=== PATIENT | female | born 1985 | race Caucasian/White ===

== ENCOUNTER 2017-02-06 20:17 | Emergency (ER) | payer OTHER ==
--- NOTE | 2017-02-06 21:44 | DIAGNOSTIC IMAGING REPORT ---
PROCEDURE: XR RIBS UNILAT W/PA CHEST-RT INDICATION: TRAUMA/INJURY TECHNIQUE: Two views of the right ribs with single PA view chest. COMPARISON: Compared to chest x-ray and 06/06/2014. FINDINGS: RIGHT RIBS: There is an acute minimally displaced fracture of the anterior lateral right ninth rib. The rest of the ribs are normal. CHEST: Lungs are clear. Heart and mediastinum are normal. Thorax is normal. IMPRESSION: 1. Acute fracture of the right ninth rib. 2. Negative chest. 3. Fine discussed with BHUPENDRA Gil.
--- NOTE | 2017-02-06 21:47 | ED ORDER SUMMARY ---
..... Patient: REECE BUCKNER OrderSheet [facility] VisitID: [id number] [place] [address] 31y, F Registration Date/Time: 02/06/2017 ORDER SHEET Weight: 56.7 kg (measured) Allergies: morphine, Ultram GENERAL ORDERS: Ribs Unilat w PA Chest Right Urgent (20:35 02/06/2017 HBivens A.R.N.P.) (Ack 20:38 SRedmond) (21:09 MCampbell) Urine Urgent (20:45 02/06/2017 DDavis R.N. verbal order read back to HBivens A.R.N.P.) (Ack 20:47 SRedmond) (20:54 DDavis R.N.) MEDICATION ORDERS: Toradol IM 60 mg (NOW) (20:34 02/06/2017 HBivens A.R.N.P.) (Ack 20:41 DDavis R.N.) (20:54 DDavis R.N.) IV FLUIDS: ORDER SHEET NOTES: [Electronically signed by Jaquan Conteh R.N. (21:55 02/06/2017)] [Electronically signed by Karlene GuzmánR.N.PRicki (22:22 02/06/2017)] [Electronically locked/signed by Jaquan Conteh R.N. (21:55 02/06/2017)]
--- NOTE | 2017-02-06 21:47 | ED ORDER SUMMARY ---
..... Patient: REECE BUCKNER OrderSheet [facility] VisitID: [id number] [place] [address] 31y, F Registration Date/Time: 02/06/2017 ORDER SHEET Weight: 56.7 kg (measured) Allergies: morphine, Ultram GENERAL ORDERS: Ribs Unilat w PA Chest Right Urgent (20:35 02/06/2017 HBivens A.R.N.P.) (Ack 20:38 SRedmond) (21:09 MCampbell) Urine Urgent (20:45 02/06/2017 DDavis R.N. verbal order read back to HBivens A.R.N.P.) (Ack 20:47 SRedmond) (20:54 DDavis R.N.) MEDICATION ORDERS: Toradol IM 60 mg (NOW) (20:34 02/06/2017 HBivens A.R.N.P.) (Ack 20:41 DDavis R.N.) (20:54 DDavis R.N.) IV FLUIDS: ORDER SHEET NOTES: [Electronically signed by Jaquan Conteh R.N. (21:55 02/06/2017)] [Electronically signed by Karlene GuzmánR.N.PRicki (22:22 02/06/2017)] [Electronically locked/signed by Jaquan Conteh R.N. (21:55 02/06/2017)]
--- NOTE | 2017-02-06 21:47 | ED NURSING NOTES ---
Clinical Report - Nurses [facility] [place] [address] 02/06/2017 20:19 [id number] TRI[facility] Triage time 20:23. Acuity: LEVEL 4. Chief Complaint: FALL and (right side/rib pain, increases with palpation and movement). Alert. VIDAL COMA SCORE: Vidal Coma Scale: 15- eyes open spontaneously (4); best verbal response- oriented x 4 (5); best motor response- obeys commands (6). --20:30 Jaquan Conteh R.N. 20:23 02/06/17. BP: 135/88. HR: 103 (regular). RR: 20 (regular and unlabored). O2 saturation: 99% on room air. Temp: 98.1 F (oral). Pain level now: 06/12. --20:30 Jaquan Conteh R.N. Weight: 56.7 kg measured. Height/Length: 65 inches Per Patient. BMI: 20.8. --20:23 Jaquan Conteh R.N. Medications None. --20:29 Jaquan Conteh R.N. Allergies morphine. Ultram. --20:29 Jaquan Conteh R.N. History Arrived by private vehicle. Historian: patient. Unaccompanied. This occurred (2 days ago). ( pt states that she was running running "the day before yesterday" and states that she "tripped" and fell, and landed on her right side. States having right leg pain, and denies having other injuries, denies hitting her head.). No loss of consciousness. No headache, neck pain, back pain, numbness or weakness. SOCIAL HX: Heavy tobacco smoker (cigarette)- 1 pack per day. History of drug use: marijuana. Is a recovering addict. No alcohol use. SELF HARM ASSESSMENT: A self harm assessment was performed. The patient answered "no" to the question "Do you have thoughts of harming or killing yourself?" and "Are you here because you tried to hurt yourself?". FALL RISK ASSESSMENT: Fall risk assessment completed. No fall risk identified. NUTRITIONAL RISK ASSESSMENT: The nutritional risk assessment revealed no deficiencies. FUNCTIONAL ASSESSMENT: Functional assessment: no impairments noted. LEARNING NEEDS ASSESSMENT: The learning needs assessment revealed no barriers. SKIN INTEGRITY ASSESSMENT: Skin integrity risk assessment completed. No skin integrity risk identified. --20:30 Jaquan Conteh R.N. PROBLEMS: Dental Caries. Nausea. Congestive pelvic disorder. Brain cyst. Contusion. ADD - Attention Deficit Disorder. Depression. Anxiety Reaction. ADHD - Attention Deficit Hyperactivity Disorder. Migraine Headache. Asthma. --20:29 Jaquan Conteh R.N. ADDITIONAL SURGERIES: Dilatation & Curettage. Laparoscopy. Oophorectomy [2011]. --20:29 Jaquan Conteh R.N. Interventions ID and allergy band on patient. To treatment room. --20:30 Jaquan Conteh R.N. PHYSICAL ASSESSMENT GENERAL / NEURO / PSYCH: Alert. Oriented X 4. HEENT: Head non-tender. RESPIRATORY: Respirations not labored. CVS: Capillary refill less than 2 seconds. GI / : Abdomen nontender. EXTREMITIES: Extremities exhibit normal ROM. Neuro-vascular status intact to the extremity. SKIN: Skin intact. Skin is warm and dry. ( no bruising or external deformity observed on examination of right side/area on chief complaint. No bleeding or signs of broken skin observed.). --20:31 Jaquan Conteh R.N. NURSING PROGRESS NOTES Patient gowned. Reassurance given. Two patient identifiers checked. Call light placed in reach. Side rails up x 2. Bed placed in lowest position. Brakes of bed on. Patient ready for evaluation- chart flagged. Patient waiting for evaluation. --20:31 Jaquan Conteh R.N. 20:53 02/06/2017 Toradol (Ketorolac Tromethamine) IM 60 mg given. Given in the right gluteus jeana. --20:54 Jaquan Conteh R.N. Urine test negative; lot #: [id number]. corrosion control specialist check passed. --20:56 Jaquan Conteh R.N. ( Xray notified that patient is ready). --20:56 Jaquan Conteh R.N. ( HCG urine test was performed at 2049.). --20:57 Jaquan Conteh R.N. DISPOSITION / DISCHARGE Departure time: 21:55. Condition at departure: stable. No learning barriers present. Discharge instructions provided and reviewed with the patient. Reviewed warnings. Reviewed medication(s) side effects, precautions, dosing and course information. Prescription(s) given to the patient. Treatments reviewed. Reviewed referrals for followup. Patient verbalized understanding. Written instructions provided in Occitan. ( pt verbally acknowledged that she is not allowed to drive or operate heavy machinery after taking the [place]'s that she was prescribed today.). The patient was discharged home and unaccompanied at time of discharge. She left the Emergency Department ambulatory and via private vehicle. Patient driving. --21:55 Jaquan Conteh R.N. 21:53 02/06/17. BP: 123/84. HR: 105. RR: 20 (regular and unlabored). O2 saturation: 100% on room air. Pain level now: 8/10. Additional comments: pt crying. --21:55 Jaquan Conteh R.N. Locked/Released at 02/06/2017 21:55 by Jaquan Conteh R.N.
--- NOTE | 2017-02-06 21:47 | ED NURSING NOTES ---
Clinical Report - Nurses [facility] [place] [address] 02/06/2017 20:19 [id number] Triage time 20:23. Acuity: LEVEL 4. Chief Complaint: FALL and (right side/rib pain, increases with palpation and movement). Alert. VIDAL COMA SCORE: Vidal Coma Scale: 15- eyes open spontaneously (4); best verbal response- oriented x 4 (5); best motor response- obeys commands (6). --20:30 Jaquan Conteh R.N. 20:23 02/06/17. BP: 135/88. HR: 103 (regular). RR: 20 (regular and unlabored). O2 saturation: 99% on room air. Temp: 98.1 F (oral). Pain level now: 06/12. --20:30 Jaquan Conteh R.N. Weight: 56.7 kg measured. Height/Length: 65 inches Per Patient. BMI: 20.8. --20:23 Jaquan Conteh R.N. Medications None. --20:29 Jaquan Conteh R.N. Allergies morphine. Ultram. --20:29 Jaquan Conteh R.N. History Arrived by private vehicle. Historian: patient. Unaccompanied. This occurred (2 days ago). ( pt states that she was running running "the day before yesterday" and states that she "tripped" and fell, and landed on her right side. States having right leg pain, and denies having other injuries, denies hitting her head.). No loss of consciousness. No headache, neck pain, back pain, numbness or weakness. SOCIAL HX: Heavy tobacco smoker (cigarette)- 1 pack per day. History of drug use: marijuana. Is a recovering addict. No alcohol use. SELF HARM ASSESSMENT: A self harm assessment was performed. The patient answered "no" to the question "Do you have thoughts of harming or killing yourself?" and "Are you here because you tried to hurt yourself?". FALL RISK ASSESSMENT: Fall risk assessment completed. No fall risk identified. NUTRITIONAL RISK ASSESSMENT: The nutritional risk assessment revealed no deficiencies. FUNCTIONAL ASSESSMENT: Functional assessment: no impairments noted. LEARNING NEEDS ASSESSMENT: The learning needs assessment revealed no barriers. SKIN INTEGRITY ASSESSMENT: Skin integrity risk assessment completed. No skin integrity risk identified. --20:30 Jaquan Conteh R.N. PROBLEMS: Dental Caries. Nausea. Congestive pelvic disorder. Brain cyst. Contusion. ADD - Attention Deficit Disorder. Depression. Anxiety Reaction. ADHD - Attention Deficit Hyperactivity Disorder. Migraine Headache. Asthma. --20:29 Jaquan Conteh R.N. ADDITIONAL SURGERIES: Dilatation & Curettage. Laparoscopy. Oophorectomy [2011]. --20:29 Jaquan Conteh R.N. Interventions ID and allergy band on patient. To treatment room. --20:30 Jaquan Conteh R.N. PHYSICAL ASSESSMENT GENERAL / NEURO / PSYCH: Alert. Oriented X 4. HEENT: Head non-tender. RESPIRATORY: Respirations not labored. CVS: Capillary refill less than 2 seconds. GI / : Abdomen nontender. EXTREMITIES: Extremities exhibit normal ROM. Neuro-vascular status intact to the extremity. SKIN: Skin intact. Skin is warm and dry. ( no bruising or external deformity observed on examination of right side/area on chief complaint. No bleeding or signs of broken skin observed.). --20:31 Jaquan Conteh R.N. NURSING PROGRESS NOTES Patient gowned. Reassurance given. Two patient identifiers checked. Call light placed in reach. Side rails up x 2. Bed placed in lowest position. Brakes of bed on. Patient ready for evaluation- chart flagged. Patient waiting for evaluation. --20:31 Jaquan Conteh R.N. 20:53 02/06/2017 Toradol (Ketorolac Tromethamine) IM 60 mg given. Given in the right gluteus jeana. --20:54 Jaquan Conteh R.N. Urine test negative; lot #: [id number]. electrician control equipment check passed. --20:56 Jaquan Conteh R.N. ( Xray notified that patient is ready). --20:56 Jaquan Conteh R.N. ( HCG urine test was performed at 2049.). --20:57 Jaquan Conteh R.N. DISPOSITION / DISCHARGE Departure time: 21:55. Condition at departure: stable. No learning barriers present. Discharge instructions provided and reviewed with the patient. Reviewed warnings. Reviewed medication(s) side effects, precautions, dosing and course information. Prescription(s) given to the patient. Treatments reviewed. Reviewed referrals for followup. Patient verbalized understanding. Written instructions provided in Sami. ( pt verbally acknowledged that she is not allowed to drive or operate heavy machinery after taking the [place]'s that she was prescribed today.). The patient was discharged home and unaccompanied at time of discharge. She left the Emergency Department ambulatory and via private vehicle. Patient driving. --21:55 Jaquan Conteh R.N. 21:53 02/06/17. BP: 123/84. HR: 105. RR: 20 (regular and unlabored). O2 saturation: 100% on room air. Pain level now: 8/10. Additional comments: pt crying. --21:55 Jaquan Conteh R.N. Locked/Released at 02/06/2017 21:55 by Jaquan Conteh R.N.
--- NOTE | 2017-02-06 21:47 | ED CLINICAL REPORT ---
Clinical Report - Physicians/Mid Levels [facility] [address] [place] [address] 02/06/2017 20:19 Patient: REECE BUCKNER Time Seen: 20:24; initial patient contact, initial documentation, patient care assumed. Arrived- By private vehicle. Historian- patient. HISTORY OF PRESENT ILLNESS Chief Complaint: FALL. Location of injuries- chest. The injury occurred yesterday. Fell while running and landed on the ground; tripped. The patient complains of moderate pain. No blow to the head, neck pain, loss of consciousness or seizure. Not dazed. REVIEW OF SYSTEMS No numbness, difficulty breathing, weakness, abdominal pain or laceration. She has had chest pain but no pain on weight bearing. All systems otherwise negative, except as recorded above. PAST HISTORY See nurses notes. PROBLEMS: Dental Caries. Nausea. Congestive pelvic disorder. Brain cyst. Contusion. ADD - Attention Deficit Disorder. Depression. Anxiety Reaction. ADHD - Attention Deficit Hyperactivity Disorder. Migraine Headache. Asthma. --20:29 Jaquan Conteh R.N. ADDITIONAL SURGERIES: Dilatation & Curettage. Laparoscopy. Oophorectomy [2011]. --20:29 Jaquan Conteh R.N. SOCIAL HISTORY Heavy tobacco smoker. History of heavy drug use: marijuana. Is a recovering addict. No alcohol use. No recent travel. Is a local resident. FAMILY HISTORY No significant family medical history. ADDITIONAL NOTES The nursing notes have been reviewed with agreement regarding the chief complaint, HPI, ROS, PMH and patient medications and allergies. PHYSICAL EXAM Vital Signs: 02/06/2017 20:23 BP: 135/88. HR: 103. RR: 20. O2 saturation: 99%. Temp: 98.1 F. Pain level now: 8/10. Have been reviewed as abnormal and appear to be correct. Blood pressure normal. Tachycardic. Respiratory rate normal. Temperature normal. Oxygen saturation normal. Appearance: Alert. Oriented X3. Anxious. No acute distress. Head: Head non-tender. No swelling of head. Eyes: Pupils equal, round and reactive to light. EOM intact. ENT: No dental injury. Pharynx normal. Neck: Painless ROM. Non-tender. CVS: Heart sounds normal. Pulses normal. Respiratory: Chest tender. Chest wall injury: moderate tenderness located in the middle, lower, right, posterior and lateral chest. No swelling. No laceration. No abrasion. No ecchymosis. No deformity. No injury to the costal cartilage, sternum, manubrium or xiphoid. No splinting present. No paradoxical movement. Breath sounds normal. Back: No tenderness. ROM normal. Skin: Skin intact. Skin warm and dry. Normal skin color. Normal skin turgor. Extremities: Normal inspection. Pelvis stable. Extremities atraumatic. No lower extremity edema. Neuro: Oriented X 3. No motor deficit. No sensory deficit. LABS, X-RAYS, AND EKG X-Rays: Rib series. Sternum / Ribs X-rays: On the right, 9th rib fracture(s) present anteriorly and laterally. No fracture present. The X-rays were interpreted by the radiologist and discussed with the radiologist. Interpretation time: 21:44. PROGRESS AND PROCEDURES Course of Care: 20:35 02/06/17. pt has inga for #8 er visits, see report for full details. Patient counseled in person regarding the patient's stable condition, test results and diagnosis. 21:44. Differential Diagnosis: Other possible considerations: fall, rib fx, chest contusion, internal injury, pneumo, hemo. Above considerations are based on history, physical exam, reassessment and X-Ray data. Differential diagnosis was discussed with patient. Disposition: Discharged home in good and improved condition (21:47). Condition: good and stable. CLINICAL IMPRESSION Single right rib fracture. Fall on same level by tripping. INSTRUCTIONS Warnings: GENERAL WARNINGS: Return or contact your physician immediately if your condition worsens or changes unexpectedly, if not improving as expected, or if other problems arise. pain worsens, trouble breathing. Prescription Medications: Zofran 4 mg: Take 1 orally every six hours as needed for nausea/vomiting. Dispense ten (10). No refills. Substitution is permissible. Motrin 800 mg tablets: take 1 tablet orally every 8 hours as needed for pain. Dispense thirty (30). No refills. Substitution is permissible. [place] 5 mg / 325 mg tablets: take 1 orally every 6 hours as needed for pain. Dispense thirty (30). No refill. Follow-up: Follow up with your doctor in about one week even if well. Call for an appointment. Summary of care provided to patient. Understanding of the discharge instructions verbalized by patient. (Electronically signed by Karlene Guzmán A.R.N.P. 02/06/2017 22:22)
--- NOTE | 2017-02-06 22:23 | ED MED RECONCILIATION SUMMARY ---
Patient: REECE BUCKNER Medication Reconciliation Report [facility] VisitID: [id number] [place] [address] 31y, F Registration Date/Time: 02/06/2017 Weight: 56.7 kg Height/Length: 65 in. BMI: 20.8 ALLERGIES: morphine, Ultram The patient's Home Medications are listed below: NONE. The source(s) of the original Home Medication information: Not obtained. The following Medications were given to the patient in the Emergency Department: Toradol [IM] IM 60 mg, administered: 02/06/2017 8:53:00 PM The following Medications were prescribed to the patient: Zofran 4 mg: Take 1 orally every six hours as needed for nausea/vomiting. Dispense ten (10). No refills. Substitution is permissible. -- Karlene Guzmán, A.R.N.P. Motrin 800 mg tablets: take 1 tablet orally every 8 hours as needed for pain. Dispense thirty (30). No refills. Substitution is permissible. -- Karlene Guzmán A.R.N.P. [place] 5 mg / 325 mg tablets: take 1 orally every 6 hours as needed for pain. Dispense thirty (30). No refill. -- Karlene Guzmán A.R.N.P.
--- NOTE | 2017-02-06 22:23 | ED MED RECONCILIATION SUMMARY ---
Patient: REECE BUCKNER Medication Reconciliation Report [facility] VisitID: [id number] [place] [address] 31y, F Registration Date/Time: 02/06/2017 Weight: 56.7 kg Height/Length: 65 in. BMI: 20.8 ALLERGIES: morphine, Ultram The patient's Home Medications are listed below: NONE. The source(s) of the original Home Medication information: Not obtained. The following Medications were given to the patient in the Emergency Department: Toradol [IM] IM 60 mg, administered: 02/06/2017 8:53:00 PM The following Medications were prescribed to the patient: Zofran 4 mg: Take 1 orally every six hours as needed for nausea/vomiting. Dispense ten (10). No refills. Substitution is permissible. -- Karlene Guzmán, A.R.N.P. Motrin 800 mg tablets: take 1 tablet orally every 8 hours as needed for pain. Dispense thirty (30). No refills. Substitution is permissible. -- Karlene Guzmán A.R.N.P. [place] 5 mg / 325 mg tablets: take 1 orally every 6 hours as needed for pain. Dispense thirty (30). No refill. -- Karlene Guzmán A.R.N.P.
--- NOTE | 2017-02-06 22:23 | ED MAR SUMMARY ---
..... Medication Administration Record [facility] [address] [place] [address] Patient: REECE BUCKNER Visit ID: [id number] 31y, F Weight: 56.7 kg Height/Length: 65 in BMI: 20.8 ALLERGIES: morphine, Ultram Given 20:53 02/06/2017 Jaquan Conteh R.N. Medication Administered: TORADOL [IM] (KETOROLAC TROMETHAMINE), Dose: 60 mg IM. Medication Ordered: Toradol IM 60 mg (NOW).
--- NOTE | 2017-02-06 22:23 | ED MAR SUMMARY ---
..... Medication Administration Record [facility] [address] [place] [address] Patient: REECE BUCKNER Visit ID: [id number] 31y, F Weight: 56.7 kg Height/Length: 65 in BMI: 20.8 ALLERGIES: morphine, Ultram Given 20:53 02/06/2017 Jaquan Conteh R.N. Medication Administered: TORADOL [IM] (KETOROLAC TROMETHAMINE), Dose: 60 mg IM. Medication Ordered: Toradol IM 60 mg (NOW).
--- NOTE | 2017-02-06 22:23 | ED DISCHARGE INSTRUCTIONS ---
Patient: REECE BUCKNER General Instructions [facility] VisitID: [id number] [place] [address] 31y, F Registration Date/Time: 02/06/2017 Single right rib fracture. Fall on same level by tripping. INSTRUCTIONS Warnings: GENERAL WARNINGS: Return or contact your physician immediately if your condition worsens or changes unexpectedly, if not improving as expected, or if other problems arise. pain worsens, trouble breathing. Prescription Medications: Zofran 4 mg: Take 1 orally every six hours as needed for nausea/vomiting. Dispense ten (10). No refills. Substitution is permissible. Motrin 800 mg tablets: take 1 tablet orally every 8 hours as needed for pain. Dispense thirty (30). No refills. Substitution is permissible. [place]lington 5 mg / 325 mg tablets: take 1 orally every 6 hours as needed for pain. Dispense thirty (30). No refill. Follow-up: Follow up with your doctor in about one week even if well. Call for an appointment. Summary of care provided to patient. Understanding of the discharge instructions verbalized by patient. ADDITIONAL INFORMATION Mechanical Fall You have had a fall today. It appears that the cause is mechanical. That means that you slipped, tripped or lost your balance. If your fall had been due to fainting or a seizure, further tests would be required. Home Care: Rest today and resume your normal activities when you are feeling back to normal. If you were injured during the fall, follow the advice from your doctor regarding care of your injury. You may use acetaminophen (Tylenol) or ibuprofen (Motrin, Advil) to control pain, unless another pain medicine was prescribed. [NOTE: If you have chronic liver or kidney disease or ever had a stomach ulcer or GI bleeding, talk with your doctor before using these medicines.] Fall Prevention: Was there anything that caused your fall that can be fixed, removed, or replaced? Make your home safe by keeping walkways clear of objects you may trip over. Use non-slip pads under rugs. Do not walk in poorly lit areas. Do not stand on chairs or wobbly ladders. Use caution when reaching overhead or looking upward. This position can cause a loss of balance. Be sure your shoes fit properly, have non-slip bottoms and are in good condition. Be cautious when going up and down curbs, and walking on uneven sidewalks. If your balance is poor, consider using a cane or walker. Stay as active as you can. Balance, flexibility, strength, and endurance all come from exercise. They all play a role in preventing falls. Follow Up with your doctor or as advised by our staff. Get Prompt Medical Attention if any of the following occur: Repeated mechanical falls, or unexplained falls Dizziness, fainting or seizure Severe headache Chest pain or shortness of breath Palpitations (very rapid or very slow or irregular heartbeat) Blood in vomit, stools (black or red color) Weakness of an arm or leg or one side of the face Difficulty with speech or vision Rib Fracture You have a fracture (break) of one or more ribs. Rib fractures do not require a cast like other bones. They will heal by themselves in about 4-6 weeks. The first 3-4 weeks will be the most painful because deep breathing, coughing or changing position from sitting to lying down, may cause the broken ends to move slightly. Home Care: Rest. You should not be doing any heavy lifting or strenuous exertion until the pain goes away. Because it hurts to breathe when you have a broken rib, there is risk of getting pneumonia from poor airflow through your lungs. To prevent this: Take four very deep breaths at least four times a day (exhale through pursed lips as if you are blowing up a balloon). If an "incentive spirometer" (breathing exercise device) was given to you, use it at least four times a day, or as directed. Apply an ice pack (ice cubes in a plastic bag, wrapped in a towel) over the injured area for 20 minutes every 1-2 hours the first day. Continue with ice packs 3-4 times a day for the next two days, then as needed for the relief of pain and swelling. You may use acetaminophen (Tylenol) or ibuprofen (Motrin, Advil) to control pain, unless another pain medicine was prescribed. [NOTE: If you have chronic liver or kidney disease or ever had a stomach ulcer or GI bleeding, talk with your doctor before using these medicines.] If your pain is not controlled by the treatment given, contact your doctor. Sometimes a stronger pain medicine may be needed. A nerve block (numbing the nerve between the ribs) can be performed in case of severe pain. Follow Up with your doctor during the next week, or as advised. Rarely, a broken rib will cause complications within the first few days that may not be evident during your initial exam (such as, collapsed lung, bleeding around the lung or into the abdomen, or pneumonia). Therefore, watch for the signs below. [NOTE: If x-rays were taken, they will be reviewed by a radiologist. You will be notified of any new findings that may affect your care.] Get Prompt Medical Attention if any of the following occur: Shortness of breath Increasing chest pain with breathing Dizziness, weakness or fainting New or worsening abdominal pain Fever of 100.4F (38C) or higher, or as directed by your healthcare provider Congested cough Ondansetron Oral disintegrating tablet What is this medicine? ONDANSETRON (on HERNO se jurgen) is used to treat nausea and vomiting caused by chemotherapy. It is also used to prevent or treat nausea and vomiting after surgery. How should I use this medicine? These tablets are made to dissolve in the mouth. Do not try to push the tablet through the foil backing. With dry hands, peel away the foil backing and gently remove the tablet. Place the tablet in the mouth and allow it to dissolve, then swallow. While you may take these tablets with water, it is not necessary to do so. Talk to your transformer assembler regarding the use of this medicine in children. Special care may be needed. What side effects may I notice from receiving this medicine? Side effects that you should report to your doctor or health director medicare sales as soon as possible: allergic reactions like skin rash, itching or hives, swelling of the face, lips, or tongue breathing problems dizziness fast or irregular heartbeat feeling faint or lightheaded, falls fever and chills swelling of the hands and feet tightness in the chest Side effects that usually do not require medical attention (report to your doctor or health director medicare sales if they continue or are bothersome): constipation or diarrhea headache What may interact with this medicine? Do not take this medicine with any of the following medications: -apomorphine -cisapride -dofetilide -dronedarone -pimozide -thioridazine -ziprasidone This medicine may also interact with the following medications: -carbamazepine -phenytoin -rifampicin -tramadol -other medicines that prolong the QT interval (cause an abnormal heart rhythm) What if I miss a dose? If you miss a dose, take it as soon as you can. If it is almost time for your next dose, take only that dose. Do not take double or extra doses. Where should I keep my medicine? Keep out of the reach of children. Store between 2 and 30 degrees C (36 and 86 degrees F). Throw away any unused medicine after the expiration date. What should I tell my health care provider before I take this medicine? They need to know if you have any of these conditions: heart disease history of irregular heartbeat liver disease low levels of magnesium or potassium in the blood an unusual or allergic reaction to ondansetron, granisetron, other medicines, foods, dyes, or preservatives or trying to get breast-feeding What should I watch for while using this medicine? Check with your doctor or health director medicare sales as soon as you can if you have any sign of an allergic reaction. Ibuprofen Oral tablet What is this medicine? IBUPROFEN (eye BYOO proe fen) is a non-steroidal anti-inflammatory drug (NSAID). It is used for dental pain, fever, headaches or migraines, osteoarthritis, rheumatoid arthritis, or painful monthly periods. It can also relieve minor aches and pains caused by a cold, flu, or sore throat. How should I use this medicine? Take this medicine by mouth with a glass of water. Follow the directions on the prescription label. Take this medicine with food if your stomach gets upset. Try to not lie down for at least 10 minutes after you take the medicine. Take your medicine at regular intervals. Do not take your medicine more often than directed. A special MedGuide will be given to you by the pharmacist with each prescription and refill. Be sure to read this information carefully each time. Talk to your transformer assembler regarding the use of this medicine in children. Special care may be needed. What side effects may I notice from receiving this medicine? Side effects that you should report to your doctor or health director medicare sales as soon as possible: allergic reactions like skin rash, itching or hives, swelling of the face, lips, or tongue black or bloody stools, blood in the urine or in vomit breathing problems changes in vision chest pain general ill feeling or flu-like symptoms nausea or vomiting redness, blistering, peeling or loosening of the skin, including inside the mouth slurred speech or weakness on one side of the body stomach pain unexplained weight gain or swelling unusually weak or tired yellowing of eyes or skin Side effects that usually do not require medical attention (report to your doctor or health director medicare sales if they continue or are bothersome): constipation or diarrhea dizziness gas or heartburn stomach upset What may interact with this medicine? Do not take this medicine with any of the following medications: cidofovir ketorolac methotrexate pemetrexed This medicine may also interact with the following medications: alcohol aspirin diuretics lithium other drugs for inflammation like prednisone warfarin What if I miss a dose? If you miss a dose, take it as soon as you can. If it is almost time for your next dose, take only that dose. Do not take double or extra doses. Where should I keep my medicine? Keep out of the reach of children. Store at room temperature between 15 and 30 degrees C (59 and 86 degrees F). Keep container tightly closed. Throw away any unused medicine after the expiration date. What should I tell my health care provider before I take this medicine? They need to know if you have any of these conditions: asthma cigarette smoker drink more than 3 alcohol containing drinks a day heart disease or circulation problems such as heart failure or leg edema (fluid retention) high blood pressure kidney disease liver disease stomach bleeding or ulcers an unusual or allergic reaction to ibuprofen, aspirin, other NSAIDS, other medicines, foods, dyes, or preservatives or trying to get breast-feeding What should I watch for while using this medicine? Tell your doctor or healthcare professional if your symptoms do not start to get better or if they get worse. This medicine does not prevent heart attack or stroke. In fact, this medicine may increase the chance of a heart attack or stroke. The chance may increase with longer use of this medicine and in people who have heart disease. If you take aspirin to prevent heart attack or stroke, talk with your doctor or health director medicare sales. Do not take other medicines that contain aspirin, ibuprofen, or naproxen with this medicine. Side effects such as stomach upset, nausea, or ulcers may be more likely to occur. Many medicines available without a prescription should not be taken with this medicine. This medicine can cause ulcers and bleeding in the stomach and intestines at any time during treatment. Ulcers and bleeding can happen without warning symptoms and can cause . To reduce your risk, do not smoke cigarettes or drink alcohol while you are taking this medicine. You may get drowsy or dizzy. Do not drive, use machinery, or do anything that needs mental alertness until you know how this medicine affects you. Do not stand or sit up quickly, especially if you are an older patient. This reduces the risk of dizzy or fainting spells. This medicine can cause you to bleed more easily. Try to avoid damage to your teeth and gums when you brush or floss your teeth. Hydrocodone Bitartrate, Acetaminophen Oral tablet What is this medicine? ACETAMINOPHEN; HYDROCODONE (a set a LIZZY chloe fen; eliel droe KOE done) is a pain reliever. It is used to treat mild to moderate pain. How should I use this medicine? Take this medicine by mouth. Swallow it with a full glass of water. Follow the directions on the prescription label. If the medicine upsets your stomach, take the medicine with food or milk. Do not take more than you are told to take. Talk to your transformer assembler regarding the use of this medicine in children. This medicine is not approved for use in children. What side effects may I notice from receiving this medicine? Side effects that you should report to your doctor or health director medicare sales as soon as possible: allergic reactions like skin rash, itching or hives, swelling of the face, lips, or tongue breathing problems confusion feeling faint or lightheaded, falls stomach pain yellowing of the eyes or skin Side effects that usually do not require medical attention (report to your doctor or health director medicare sales if they continue or are bothersome): nausea, vomiting stomach upset What may interact with this medicine? alcohol antihistamines isoniazid medicines for depression, anxiety, or psychotic disturbances medicines for sleep muscle relaxants naltrexone narcotic medicines (opiates) for pain phenobarbital ritonavir tramadol What if I miss a dose? If you miss a dose, take it as soon as you can. If it is almost time for your next dose, take only that dose. Do not take double or extra doses. Where should I keep my medicine? Keep out of the reach of children. This medicine can be abused. Keep your medicine in a safe place to protect it from theft. Do not share this medicine with anyone. Selling or giving away this medicine is dangerous and against the law. Store at room temperature between 15 and 30 degrees C (59 and 86 degrees F). Protect from light. Keep container tightly closed. Throw away any unused medicine after the expiration date. Discard unused medicine and used packaging carefully. Pets and children can be harmed if they find used or lost packages. What should I tell my health care provider before I take this medicine? They need to know if you have any of these conditions: brain tumor Crohn's disease, inflammatory bowel disease, or ulcerative colitis drink more than 3 alcohol-containing drinks per day drug abuse or addiction head injury heart or circulation problems kidney disease or problems going to the bathroom liver disease lung disease, asthma, or breathing problems an unusual or allergic reaction to acetaminophen, hydrocodone, other opioid analgesics, other medicines, foods, dyes, or preservatives or trying to get breast-feeding What should I watch for while using this medicine? Tell your doctor or health director medicare sales if your pain does not go away, if it gets worse, or if you have new or a different type of pain. You may develop tolerance to the medicine. Tolerance means that you will need a higher dose of the medicine for pain relief. Tolerance is normal and is expected if you take the medicine for a long time. Do not suddenly stop taking your medicine because you may develop a severe reaction. Your body becomes used to the medicine. This does NOT mean you are addicted. Addiction is a behavior related to getting and using a drug for a non-medical reason. If you have pain, you have a medical reason to take pain medicine. Your doctor will tell you how much medicine to take. If your doctor wants you to stop the medicine, the dose will be slowly lowered over time to avoid any side effects. You may get drowsy or dizzy when you first start taking the medicine or change doses. Do not drive, use machinery, or do anything that may be dangerous until you know how the medicine affects you. Stand or sit up slowly. There are different types of narcotic medicines (opiates) for pain. If you take more than one type at the same time, you may have more side effects. Give your health care provider a list of all medicines you use. Your doctor will tell you how much medicine to take. Do not take more medicine than directed. Call emergency for help if you have problems breathing. The medicine will cause constipation. Try to have a bowel movement at least every 2 to 3 days. If you do not have a bowel movement for 3 days, call your doctor or health director medicare sales. Too much acetaminophen can be very dangerous. Do not take Tylenol (acetaminophen) or medicines that contain acetaminophen with this medicine. Many non-prescription medicines contain acetaminophen. Always read the labels carefully. You have been given the following additional information: Fall, Mechanical Fracture, Rib Ondansetron Oral disintegrating tablet Ibuprofen Oral tablet Hydrocodone Bitartrate, Acetaminophen Oral tablet (Electronically signed by Karlene Guzmán A.R.N.P. 02/06/2017 22:22)
== END 2017-02-06 21:49 | disposition home or self-care (01) ==
LOC: ED SRH 20:17
DX: S22.31XA Fracture of one rib, right side, initial encounter for closed fracture (principal); W01.0XXA Fall on same level from slipping, tripping and stumbling without subsequent striking against object, initial encounter; Y93.02 Activity, running; Y92.89 Other specified places as the place of occurrence of the external cause; Y99.8 Other external cause status; F17.210 Nicotine dependence, cigarettes, uncomplicated; Z88.5 Allergy status to narcotic agent

== ENCOUNTER 2017-02-17 15:12 | Emergency (ER) | payer OTHER ==
--- NOTE | 2017-02-17 16:27 | DIAGNOSTIC IMAGING REPORT ---
PROCEDURE: XR CHEST 2 VIEW INDICATION: CHEST PAIN TECHNIQUE: PA and lateral view. COMPARISON: Chest x-ray 06/06/2014. FINDINGS: Lungs are clear. Cardiovascular structures are normal. Bony thorax is unremarkable. No significant interval change. IMPRESSION: 1. Negative chest.
--- NOTE | 2017-02-17 17:33 | ED CLINICAL REPORT ---
Clinical Report - Physicians/Mid Levels [facility] [address] [place] [address] 02/17/2017 15:11 Patient: REECE BUCKNER Time Seen: 16:11 Feb 17 2017. Arrived- By private vehicle. HISTORY OF PRESENT ILLNESS Chief Complaint: CHEST PAIN. 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 It is described as located in the right chest and central chest area. No nausea, vomiting or difficulty breathing. (patient presents to the emergency department with right-sided chest pain, the area where she previously injured, and was seen in the emergency department, status post a fall. Reports pain has not improved. Denies any shortness of breath cough or fevers. Denies any abdominal pain diarrhea or nausea or vomiting.). REVIEW OF SYSTEMS No chills, pedal edema, calf pain, fainting episodes or headache. No abdominal pain or black stools. All systems otherwise negative, except as recorded above. SOCIAL HISTORY Smoker- current status unknown. Alcohol use. No drug use. ADDITIONAL NOTES The nursing notes have been reviewed. PHYSICAL EXAM Vital Signs: 02/17/2017 15:30 BP: 129/83. HR: 98. RR: 22. O2 saturation: 99%. Temp: 98.2 F. Pain level now: 7/10. Appearance: Alert. No acute distress. Eyes: Eyes normal inspection. ENT: Ears normal. Nose normal. Neck: Normal inspection. No carotid bruit or lymphadenopathy. CVS: Normal heart rate and rhythm. Heart sounds normal. Respiratory: No respiratory distress. Chest pain reproducible with palpation of the anterior chest wall. Breath sounds normal. Chest nontender. No accessory muscle use or splinting. Abdomen: Soft and nontender. Bowel sounds normal. No abdominal tenderness. The bowel sounds are not abnormal. Back: Normal external inspection. No CVA tenderness. Neuro: Oriented X 3. No motor deficit. LABS, X-RAYS, AND EKG EKG: EKG time: (1616). No acute process. No acute ischemia. Rate: 79. Normal P waves. Normal GLADIS. Normal QRS complex. Normal axis. Normal ST and T waves. The study has been interpreted contemporaneously. The study has been independently viewed by me. The EKG appears to be a good tracing. Chest X-ray: (IMPRESSION: 1. Negative chest. Electronically Final signed by:Yogi Best MD 02/17/2017 4:27:32 PM). Laboratory Tests: CBC w Diff: (GABBIE: 02/17/2017 16:15) ( MsgRcvd 02/17/2017 16:31) Final results Test Result Flag Units (Reference) WHITE BLOOD COUNT 11.3 K/uL (4.5-11.5) RED BLOOD COUNT 4.05 M/uL (4.00-5.20) HEMOGLOBIN 13.4 gm/dL (12.0-16.0) HEMATOCRIT 40.3 % (36.0-46.0) MEAN CELL VOLUME 100 fL (80-100) MEAN CORPUSCULAR HGB 33 pg (26-34) MEAN CORPUSCULAR HGB CONC 33 g/dL (31-37) RED CELL DISTRIBUTION WIDTH 15.6 H % (11.6-14.8) PLATELET COUNT 350 K/uL (150-400) NEUTROPHIL % 52.2 % (50-75) LYMPH % 33.9 % (25-40) MONO % 10.7 % (3-14) EOSINOPHIL % 2.2 % (0-4) BASOPHIL % 1.0 % (0-2) . PROGRESS AND PROCEDURES Course of Care: Patient with no signs of hypoxia or tachycardia, PERC Neg. No distress. Very stable . Pain is largely reproduced on exam. Patient is stable. Patient/family counseled. Differential Diagnosis: I considered muscle strain, costochondritis, pleurisy, epidemic pleurodynia, intercostal neuritis, myocardial infarction, intermediate coronary syndrome, aortic dissection, pulmonary embolism and gastroesophageal reflux disease as a possible cause of chest pain in this patient. This is a partial list of diagnoses considered. Disposition: Discharged. CLINICAL IMPRESSION Chest wall pain INSTRUCTIONS Avoid stimulants (such as cigarettes, coffee, cold medicines, sinus medicines, street drugs). (Address: [address] [place] [id number] ). Prescription Medications: Hydrocodone/APAP 5mg / 325mg: take 1 orally every 6 hours as needed for pain. Dispense twelve (12). No refill. Ibuprofen 800 mg tablets: take 1 tablet orally every 8 hours for 5 days, as needed for pain. Dispense fifteen (15). No refill. Follow-up: Follow up with your doctor in three days. (Electronically signed by Julisa Payton P.A.-C 02/17/2017 17:48)
--- NOTE | 2017-02-17 17:33 | ED ORDER SUMMARY ---
..... Patient: REECE BUCKNER OrderSheet [facility] VisitID: [id number] [place] [address] 31y, F Registration Date/Time: 02/17/2017 ORDER SHEET Weight: 63.5 kg (estimated) Allergies: morphine, Ultram GENERAL ORDERS: Chest 2V Urgent (15:57 02/17/2017 EKoroleva P.A.-C) (Ack 15:59 PWeiler ER Tech1) (16:21 KHoerner) Addictions Recovery Specialist (Continuous) (15:57 02/17/2017 EKoroleva P.A.-C) (16:33 DDean R.N.) EKG - ER Stat (15:57 02/17/2017 EKoroleva P.A.-C) (Ack 15:59 PWeiler ER Tech1) (16:20 KHoerner) CBC w Diff Urgent (16:01 02/17/2017 EKoroleva P.A.-C) (Ack 16:03 PWeiler ER Tech1) (16:20 KHoerner) CMP Urgent (16:01 02/17/2017 EKoroleva P.A.-C) (Ack 16:03 PWeiler ER Tech1) (16:20 KHoerner) UA-Culture if indicated Urgent (16:01 02/17/2017 EKoroleva P.A.-C) (Ack 16:03 PWeiler ER Tech1) (16:37 DDean R.N.) Lipase Urgent (16:01 02/17/2017 EKoroleva P.A.-C) (Ack 16:03 PWeiler ER Tech1) (16:20 KHoerner) Troponin-I Urgent (16:47 02/17/2017 EKoroleva P.A.-C) (Ack 16:52 PWeiler ER Tech1) (16:56 KHoerner) Vitals (17:12 02/17/2017 EKoroleva P.A.-C) (17:40 DDean R.N.) MEDICATION ORDERS: Hydrocodone-APAP PO 10/650 mg (NOW, HIGH ALERT MEDICATION) (16:01 02/17/2017 Gretchen Camejo) (Ack 16:33 DDean R.N.) (16:47 DDean R.N.) IV FLUIDS: ORDER SHEET NOTES: [Electronically signed by Julisa Payton P.A.-C (17:48 02/17/2017)] [Electronically signed by Angela Mcdermott R.N. (17:59 02/17/2017)] [Electronically locked/signed by Angela Mcdermott R.N. (17:59 02/17/2017)]
--- NOTE | 2017-02-17 17:33 | ED CLINICAL REPORT ---
Clinical Report - Physicians/[facility] [address] [place] [address] 02/17/2017 15:11 Patient: REECE BUCKNER Time Seen: 16:11 Feb 17 2017. Arrived- By private vehicle. HISTORY OF PRESENT ILLNESS Chief Complaint: CHEST PAIN. This started 2 weeks DIRECTOR FURNITURE and is still present. It is described as located in the right chest and central chest area. No nausea, vomiting or difficulty breathing. (patient presents to the emergency department with right-sided chest pain, the area where she previously injured, and was seen in the emergency department, status post a fall. Reports pain has not improved. Denies any shortness of breath cough or fevers. Denies any abdominal pain diarrhea or nausea or vomiting.). REVIEW OF SYSTEMS No chills, pedal edema, calf pain, fainting episodes or headache. No abdominal pain or black stools. All systems otherwise negative, except as recorded above. SOCIAL HISTORY Smoker- current status unknown. Alcohol use. No drug use. ADDITIONAL NOTES The nursing notes have been reviewed. PHYSICAL EXAM Vital Signs: 02/17/2017 15:30 BP: 129/83. HR: 98. RR: 22. O2 saturation: 99%. Temp: 98.2 F. Pain level now: 7/10. Appearance: Alert. No acute distress. Eyes: Eyes normal inspection. ENT: Ears normal. Nose normal. Neck: Normal inspection. No carotid bruit or lymphadenopathy. CVS: Normal heart rate and rhythm. Heart sounds normal. Respiratory: No respiratory distress. Chest pain reproducible with palpation of the anterior chest wall. Breath sounds normal. Chest nontender. No accessory muscle use or splinting. Abdomen: Soft and nontender. Bowel sounds normal. No abdominal tenderness. The bowel sounds are not abnormal. Back: Normal external inspection. No CVA tenderness. Neuro: Oriented X 3. No motor deficit. LABS, X-RAYS, AND EKG EKG: EKG time: (1616). No acute process. No acute ischemia. Rate: 79. Normal P waves. Normal GLADIS. Normal QRS complex. Normal axis. Normal ST and T waves. The study has been interpreted contemporaneously. The study has been independently viewed by me. The EKG appears to be a good tracing. Chest X-ray: (IMPRESSION: 1. Negative chest. Electronically Final signed by:Yogi Best MD 02/17/2017 4:27:32 PM). Laboratory Tests: CBC w Diff: (GABBIE: 02/17/2017 16:15) ( MsgRcvd 02/17/2017 16:31) Final results Test Result Flag Units (Reference) WHITE BLOOD COUNT 11.3 K/uL (4.5-11.5) RED BLOOD COUNT 4.05 M/uL (4.00-5.20) HEMOGLOBIN 13.4 gm/dL (12.0-16.0) HEMATOCRIT 40.3 % (36.0-46.0) MEAN CELL VOLUME 100 fL (80-100) MEAN CORPUSCULAR HGB 33 pg (26-34) MEAN CORPUSCULAR HGB CONC 33 g/dL (31-37) RED CELL DISTRIBUTION WIDTH 15.6 H % (11.6-14.8) PLATELET COUNT 350 K/uL (150-400) NEUTROPHIL % 52.2 % (50-75) LYMPH % 33.9 % (25-40) MONO % 10.7 % (3-14) EOSINOPHIL % 2.2 % (0-4) BASOPHIL % 1.0 % (0-2) . PROGRESS AND PROCEDURES Course of Care: Patient with no signs of hypoxia or tachycardia, PERC Neg. No distress. Very stable . Pain is largely reproduced on exam. Patient is stable. Patient/family counseled. Differential Diagnosis: I considered muscle strain, costochondritis, pleurisy, epidemic pleurodynia, intercostal neuritis, myocardial infarction, intermediate coronary syndrome, aortic dissection, pulmonary embolism and gastroesophageal reflux disease as a possible cause of chest pain in this patient. This is a partial list of diagnoses considered. Disposition: Discharged. CLINICAL IMPRESSION Chest wall pain INSTRUCTIONS Avoid stimulants (such as cigarettes, coffee, cold medicines, sinus medicines, street drugs). (Address: [address] [place] [id number] ). Prescription Medications: Hydrocodone/APAP 5mg / 325mg: take 1 orally every 6 hours as needed for pain. Dispense twelve (12). No refill. Ibuprofen 800 mg tablets: take 1 tablet orally every 8 hours for 5 days, as needed for pain. Dispense fifteen (15). No refill. Follow-up: Follow up with your doctor in three days. (Electronically signed by Julisa Payton P.A.-C 02/17/2017 17:48)
--- NOTE | 2017-02-17 17:33 | ED ORDER SUMMARY ---
..... Patient: REECE BUCKNER OrderSheet [facility] VisitID: [id number] [place] [address] 31y, F Registration Date/Time: 02/17/2017 ORDER SHEET Weight: 63.5 kg (estimated) Allergies: morphine, Ultram GENERAL ORDERS: Chest 2V Urgent (15:57 02/17/2017 EKoroleva P.A.-C) (Ack 15:59 PWeiler ER Tech1) (16:21 KHoerner) Swage Tender (Continuous) (15:57 02/17/2017 EKoroleva P.A.-C) (16:33 DDean R.N.) EKG - ER Stat (15:57 02/17/2017 EKoroleva P.A.-C) (Ack 15:59 PWeiler ER Tech1) (16:20 KHoerner) CBC w Diff Urgent (16:01 02/17/2017 EKoroleva P.A.-C) (Ack 16:03 PWeiler ER Tech1) (16:20 KHoerner) CMP Urgent (16:01 02/17/2017 EKoroleva P.A.-C) (Ack 16:03 PWeiler ER Tech1) (16:20 KHoerner) UA-Culture if indicated Urgent (16:01 02/17/2017 EKoroleva P.A.-C) (Ack 16:03 PWeiler ER Tech1) (16:37 DDean R.N.) Lipase Urgent (16:01 02/17/2017 EKoroleva P.A.-C) (Ack 16:03 PWeiler ER Tech1) (16:20 KHoerner) Troponin-I Urgent (16:47 02/17/2017 EKoroleva P.A.-C) (Ack 16:52 PWeiler ER Tech1) (16:56 KHoerner) Vitals (17:12 02/17/2017 EKoroleva P.A.-C) (17:40 DDean R.N.) MEDICATION ORDERS: Hydrocodone-APAP PO 10/650 mg (NOW, HIGH ALERT MEDICATION) (16:01 02/17/2017 Gretchen Camejo) (Ack 16:33 DDean R.N.) (16:47 DDean R.N.) IV FLUIDS: ORDER SHEET NOTES: [Electronically signed by Julisa Payton P.A.-C (17:48 02/17/2017)] [Electronically signed by Angela Mcdermott R.N. (17:59 02/17/2017)] [Electronically locked/signed by Angela Mcdermott R.N. (17:59 02/17/2017)]
--- NOTE | 2017-02-17 17:33 | ED NURSING NOTES ---
Clinical Report - Nurses [facility] [address] [place] [address] 02/17/2017 15:11 Patient: REECE BUCKNER TRIAGE Triage time 1530. Acuity: LEVEL 4. Chief Complaint: (was seen here 2 weeks ago after fall with dx of rib fracture #9 on rt side. c/o today of worseing pain and swelling and increased prob breathing). --15:54 Angela Mcdermott R.N. 15:30 02/17/17. BP: 129/83. HR: 98. RR: 22. O2 saturation: 99%. Temp: 98.2 F. Pain level now: 05/12. --15:54 Angela Mcdermott R.N. Weight: 63.5 kg estimated. Height/Length: 65 inches Per Patient. BMI: 23.3. --15:38 Angela Mcdermott R.N. Medications vicodin 0600 (last one, is out) . --15:52 Angela Mcdermott R.N. None. --15:53 Angela Mcdermott R.N. Motrin 800mg BID last dose 2200. --15:53 Angela Mcdermott R.N. Allergies morphine. (GI upset ) Ultram. (rash) --15:51 Angela Mcdermott R.N. History Arrived by private vehicle. Historian: patient. Accompanied by (dropped off). No primary care physician. ( states she has a cough with green sptuum). PAST MEDICAL HX: Last normal menstrual period- 2 weeks. SOCIAL HX: Light tobacco smoker (cigarette)- less than 1/2 a pack per day (Im quitting). Occasional alcohol use. No drug use. --15:54 Angela Mcdermott R.N. PROBLEMS: Thyroid Disease. Dental Caries. Nausea. Congestive pelvic disorder. Brain cyst. Depression. Anxiety Reaction. ADHD - Attention Deficit Hyperactivity Disorder. Migraine Headache. Asthma. --15:51 Angela Mcdermott R.N. ADDITIONAL SURGERIES: Dilatation & Curettage. Laparoscopy. Oophorectomy [2011]. --15:51 Angela Mcdermott R.N. Interventions ID band on patient. To treatment room. --15:54 Angela Mcdermott R.N. PHYSICAL ASSESSMENT 15:30. Ambulatory to room. Patient gowned. GENERAL / NEURO / PSYCH: Alert. Oriented X 4. Appears in pain. RESPIRATORY: Respirations not labored. Chest wall tenderness. ( occ cough states greenish sputum). CVS: Pulses within normal limits. Capillary refill less than 2 seconds. SKIN: Skin is warm and dry. --15:55 Angela Mcdermott R.N. NURSING PROGRESS NOTES 15:30. Patient gowned. Reassurance given. Patient identifiers checked. Call light placed in reach. Side rails up. Bed placed in lowest position. Patient ready for evaluation- chart flagged. --15:54 Angela Mcdermott R.N. 16:18 02/17/17. EKG time: (1616). EKG was performed by a tech and shown to the PA. --16:19 Awilda Fofana 16:20. Patient transported to radiology by wheelchair with tech. --16:36 Angeal Mcdermott R.N. 16:28. Patient returned from radiology by wheelchair with tech. --16:37 Angela Mcdermott R.N. 16:45 02/17/2017 Hydrocodone-APAP (Hydrocodone-Acetaminophen) PO 5/325 mg Tablets 2 tab given. Allergies verified, confirmed 5 rights and sedative warning given to the patient. --16:47 Angela Mcdermott R.N. 16:45 02/17/17. Patient ID band checked for patient name and birthdate: patient confirmed. Clean catch urine collected with return of yellow-colored clear urine; sample sent to lab for urinalysis and culture. Specimen labeled in the presence of the patient. --16:45 Angela Mcdermott R.N. 16:50. ( pt placed on patient monitor- NSR ., pt continues to moan and have a drawn face.). --16:51 Angela Mcdermott R.N. late entry - 16:55. Patient ID band checked for patient name and birthdate: patient confirmed. Blood samples drawn from the right antecubital space with 23g butterfly by tech per protocol ; labeled in presence of the patient and sent to lab: rainbow set and red, green, purple and blue top. --17:18 Portia Mars ER Tech1 16:50 02/17/17. BP: 120/84. HR: 18. RR: 18. O2 saturation: 96% on room air. Temp: deferred. Pain level now: 06/12. --17:57 Angela Mcdermott R.N. 17:20. ( Friend at bedside talking with pt. Pt awake, waiting for lab results). --17:58 Angela Mcdermott R.N. DISPOSITION / DISCHARGE 17:50. Condition at departure: stable. No learning barriers present. Discharge instructions provided and reviewed with the patient and spouse. Reviewed medication(s) (vicodin, motrin). Reviewed referrals ([facility]). Pcb Design Engineer verbalized understanding. Written instructions provided in Polish. The patient was discharged home and accompanied by finance controller. She left the Emergency Department ambulatory and via private vehicle. Pcb Design Engineer driving. --17:56 Angela Mcdermott R.N. 17:50 02/17/17. BP: 121/76. HR: 91. RR: 17. O2 saturation: 97%. Temp: deferred. Pain level now: 04/12. --17:56 Angela Mcdermott R.N. Locked/Released at 02/17/2017 17:59 by Angela Mcdermott R.N.
--- NOTE | 2017-02-17 17:33 | ED NURSING NOTES ---
Clinical Report - Nurses [facility] [address] [place] [address] 02/17/2017 15:11 Patient: REECE BUCKNER TRIAGE Triage time 1530. Acuity: LEVEL 4. Chief Complaint: (was seen here 2 weeks ago after fall with dx of rib fracture #9 on rt side. c/o today of worseing pain and swelling and increased prob breathing). --15:54 Angela Mcdermott R.N. 15:30 02/17/17. BP: 129/83. HR: 98. RR: 22. O2 saturation: 99%. Temp: 98.2 F. Pain level now: 05/12. --15:54 Angela Mcdermott R.N. Weight: 63.5 kg estimated. Height/Length: 65 inches Per Patient. BMI: 23.3. --15:38 Angela Mcdermott R.N. Medications vicodin 0600 (last one, is out) . --15:52 Angela Mcdermott R.N. None. --15:53 Angela Mcdermott R.N. Motrin 800mg BID last dose 2200. --15:53 Angela Mcdermott R.N. Allergies morphine. (GI upset ) Ultram. (rash) --15:51 Angela Mcdermott R.N. History Arrived by private vehicle. Historian: patient. Accompanied by (dropped off). No primary care physician. ( states she has a cough with green sptuum). PAST MEDICAL HX: Last normal menstrual period- 2 weeks. SOCIAL HX: Light tobacco smoker (cigarette)- less than 1/2 a pack per day (Im quitting). Occasional alcohol use. No drug use. --15:54 Angela Mcdermott R.N. PROBLEMS: Thyroid Disease. Dental Caries. Nausea. Congestive pelvic disorder. Brain cyst. Depression. Anxiety Reaction. ADHD - Attention Deficit Hyperactivity Disorder. Migraine Headache. Asthma. --15:51 Angela Mcdermott R.N. ADDITIONAL SURGERIES: Dilatation & Curettage. Laparoscopy. Oophorectomy [2011]. --15:51 Angela Mcdermott R.N. Interventions ID band on patient. To treatment room. --15:54 Angela Mcdermott R.N. PHYSICAL ASSESSMENT 15:30. Ambulatory to room. Patient gowned. GENERAL / NEURO / PSYCH: Alert. Oriented X 4. Appears in pain. RESPIRATORY: Respirations not labored. Chest wall tenderness. ( occ cough states greenish sputum). CVS: Pulses within normal limits. Capillary refill less than 2 seconds. SKIN: Skin is warm and dry. --15:55 Angela Mcdermott R.N. NURSING PROGRESS NOTES 15:30. Patient gowned. Reassurance given. Patient identifiers checked. Call light placed in reach. Side rails up. Bed placed in lowest position. Patient ready for evaluation- chart flagged. --15:54 Angela Mcdermott R.N. 16:18 02/17/17. EKG time: (1616). EKG was performed by a tech and shown to the PA. --16:19 Awilda Fofana 16:20. Patient transported to radiology by wheelchair with tech. --16:36 Angela Mcdermott R.N. 16:28. Patient returned from radiology by wheelchair with tech. --16:37 Angela Mcdermott R.N. 16:45 02/17/2017 Hydrocodone-APAP (Hydrocodone-Acetaminophen) PO 5/325 mg Tablets 2 tab given. Allergies verified, confirmed 5 rights and sedative warning given to the patient. --16:47 Angela Mcdermott R.N. 16:45 02/17/17. Patient ID band checked for patient name and birthdate: patient confirmed. Clean catch urine collected with return of yellow-colored clear urine; sample sent to lab for urinalysis and culture. Specimen labeled in the presence of the patient. --16:45 Angela Mcdermott R.N. 16:50. ( pt placed on deployment engineer- NSR ., pt continues to moan and have a drawn face.). --16:51 Angela Mcdermott R.N. late entry - 16:55. Patient ID band checked for patient name and birthdate: patient confirmed. Blood samples drawn from the right antecubital space with 23g butterfly by tech per protocol ; labeled in presence of the patient and sent to lab: rainbow set and red, green, purple and blue top. --17:18 Portia Mars ER Tech1 16:50 02/17/17. BP: 120/84. HR: 18. RR: 18. O2 saturation: 96% on room air. Temp: deferred. Pain level now: 06/12. --17:57 Angela Mcdermott R.N. 17:20. ( Friend at bedside talking with pt. Pt awake, waiting for lab results). --17:58 Angela Mcdermott R.N. DISPOSITION / DISCHARGE 17:50. Condition at departure: stable. No learning barriers present. Discharge instructions provided and reviewed with the patient and spouse. Reviewed medication(s) (vicodin, motrin). Reviewed referrals ([facility]). Vegetable Grader verbalized understanding. Written instructions provided in Spanish. The patient was discharged home and accompanied by car audio installer. She left the Emergency Department ambulatory and via private vehicle. Vegetable Grader driving. --17:56 Angela Mcdermott R.N. 17:50 02/17/17. BP: 121/76. HR: 91. RR: 17. O2 saturation: 97%. Temp: deferred. Pain level now: 04/12. --17:56 Angela Mcdermott R.N. Locked/Released at 02/17/2017 17:59 by Angela Mcdermott R.N.
--- NOTE | 2017-02-17 17:59 | ED DISCHARGE INSTRUCTIONS ---
Patient: REECE BUCKNER General Instructions [facility] VisitID: [id number] [place] [address] 31y, F Registration Date/Time: 02/17/2017 Chest wall pain INSTRUCTIONS Avoid stimulants (such as cigarettes, coffee, cold medicines, sinus medicines, street drugs). (Address: [place] [address] ). Prescription Medications: Hydrocodone/APAP 5mg / 325mg: take 1 orally every 6 hours as needed for pain. Dispense twelve (12). No refill. Ibuprofen 800 mg tablets: take 1 tablet orally every 8 hours for 5 days, as needed for pain. Dispense fifteen (15). No refill. Follow-up: Follow up with your doctor in three days. ADDITIONAL INFORMATION Chest Contusion Acontusion is a bruise to the skin, muscle or ribs. It may cause pain, tenderness, swelling and a purplish discoloration. Contusions take a few days to a few weeks to heal. Home Care: Rest. You should not be doing any heavy lifting or strenuous exertion, or any activity that causes pain. You may use acetaminophen (Tylenol) or ibuprofen (Motrin, Advil) to control pain, unless another pain medicine was prescribed. [ NOTE: If you have chronic liver or kidney disease or ever had a stomach ulcer or GI bleeding, talk with your doctor before using these medicines.] Follow Up with your doctor during the next week or as directed. Get Prompt Medical Attention if any of the following occur: Shortness of breath Increasing chest pain with breathing Dizziness, weakness or fainting New or worsening of abdominal pain Fever of 100.4F (38C) or higher, or as directed by your healthcare provider Rib Contusion A rib contusion is a bruise to one or more rib bones. It may cause pain, tenderness, swelling and a purplish discoloration. There may be a sharp pain with each breath. A rib contusion takes a few days, to a few weeks to heal. A small crack (fracture) in the rib may cause the same symptoms as a rib contusion. The small crack may not be seen on a chest x-ray. However, the treatment of these two conditions are the same. Home Care: Rest. You should not be doing any heavy lifting or strenuous exertion, or any activity that causes pain. Apply an ice pack (ice cubes in a plastic bag, wrapped in a towel) over the injured area for 20 minutes every 1-2 hours the first day. Continue with ice packs 3-4 times a day for the next two days, then as needed for the relief of pain and swelling. You may use acetaminophen (Tylenol) or ibuprofen (Motrin, Advil) to control pain, unless another pain medicine was prescribed. [NOTE: If you have chronic liver or kidney disease or ever had a stomach ulcer or GI bleeding, talk with your doctor before using these medicines.] Follow Up with your doctor during the next week or as directed. Get Prompt Medical Attention if any of the following occur: Shortness of breath Increasing chest pain with breathing or congested cough Dizziness, weakness or fainting New or worsening of abdominal pain Fever of 100.4F (38C) or higher, or as directed by your healthcare provider Hydrocodone Bitartrate, Acetaminophen Oral tablet What is this medicine? ACETAMINOPHEN; HYDROCODONE (a set a LIZZY chloe fen; eliel droe KOE done) is a pain reliever. It is used to treat mild to moderate pain. How should I use this medicine? Take this medicine by mouth. Swallow it with a full glass of water. Follow the directions on the prescription label. If the medicine upsets your stomach, take the medicine with food or milk. Do not take more than you are told to take. Talk to your ethylene plant helper regarding the use of this medicine in children. This medicine is not approved for use in children. What side effects may I notice from receiving this medicine? Side effects that you should report to your doctor or health lawn care professional as soon as possible: allergic reactions like skin rash, itching or hives, swelling of the face, lips, or tongue breathing problems confusion feeling faint or lightheaded, falls stomach pain yellowing of the eyes or skin Side effects that usually do not require medical attention (report to your doctor or health lawn care professional if they continue or are bothersome): nausea, vomiting stomach upset What may interact with this medicine? alcohol antihistamines isoniazid medicines for depression, anxiety, or psychotic disturbances medicines for sleep muscle relaxants naltrexone narcotic medicines (opiates) for pain phenobarbital ritonavir tramadol What if I miss a dose? If you miss a dose, take it as soon as you can. If it is almost time for your next dose, take only that dose. Do not take double or extra doses. Where should I keep my medicine? Keep out of the reach of children. This medicine can be abused. Keep your medicine in a safe place to protect it from theft. Do not share this medicine with anyone. Selling or giving away this medicine is dangerous and against the law. Store at room temperature between 15 and 30 degrees C (59 and 86 degrees F). Protect from light. Keep container tightly closed. Throw away any unused medicine after the expiration date. Discard unused medicine and used packaging carefully. Pets and children can be harmed if they find used or lost packages. What should I tell my health care provider before I take this medicine? They need to know if you have any of these conditions: brain tumor Crohn's disease, inflammatory bowel disease, or ulcerative colitis drink more than 3 alcohol-containing drinks per day drug abuse or addiction head injury heart or circulation problems kidney disease or problems going to the bathroom liver disease lung disease, asthma, or breathing problems an unusual or allergic reaction to acetaminophen, hydrocodone, other opioid analgesics, other medicines, foods, dyes, or preservatives or trying to get breast-feeding What should I watch for while using this medicine? Tell your doctor or health lawn care professional if your pain does not go away, if it gets worse, or if you have new or a different type of pain. You may develop tolerance to the medicine. Tolerance means that you will need a higher dose of the medicine for pain relief. Tolerance is normal and is expected if you take the medicine for a long time. Do not suddenly stop taking your medicine because you may develop a severe reaction. Your body becomes used to the medicine. This does NOT mean you are addicted. Addiction is a behavior related to getting and using a drug for a non-medical reason. If you have pain, you have a medical reason to take pain medicine. Your doctor will tell you how much medicine to take. If your doctor wants you to stop the medicine, the dose will be slowly lowered over time to avoid any side effects. You may get drowsy or dizzy when you first start taking the medicine or change doses. Do not drive, use machinery, or do anything that may be dangerous until you know how the medicine affects you. Stand or sit up slowly. There are different types of narcotic medicines (opiates) for pain. If you take more than one type at the same time, you may have more side effects. Give your health care provider a list of all medicines you use. Your doctor will tell you how much medicine to take. Do not take more medicine than directed. Call emergency for help if you have problems breathing. The medicine will cause constipation. Try to have a bowel movement at least every 2 to 3 days. If you do not have a bowel movement for 3 days, call your doctor or health lawn care professional. Too much acetaminophen can be very dangerous. Do not take Tylenol (acetaminophen) or medicines that contain acetaminophen with this medicine. Many non-prescription medicines contain acetaminophen. Always read the labels carefully. You have been given the following additional information: Chest Wall Contusion Rib Contusion Hydrocodone Bitartrate, Acetaminophen Oral tablet (Electronically signed by Julisa Payton P.A.-C 02/17/2017 17:48)
--- NOTE | 2017-02-17 17:59 | ED MAR SUMMARY ---
..... Medication Administration Record [facility] [address] [place] [address] Patient: REECE BUCKNER Visit ID: [id number] 31y, F Weight: 63.5 kg Height/Length: 65 in BMI: 23.3 ALLERGIES: morphine, Ultram Given 16:45 02/17/2017 Baldemar, Angela RFelix. Medication Administered: HYDROCODONE-APAP [PO] (HYDROCODONE-ACETAMINOPHEN), Dose: 2 tab 5/325 mg Tablets PO. Medication Ordered: Hydrocodone-APAP PO 10/650 mg (NOW, HIGH ALERT MEDICATION).
--- NOTE | 2017-02-17 17:59 | ED MED RECONCILIATION SUMMARY ---
Patient: REECE BUCKNER Medication Reconciliation Report [facility] VisitID: [id number] [address] [place] [address] 31y, F Registration Date/Time: 02/17/2017 Weight: 63.5 kg Height/Length: 65 in. BMI: 23.3 ALLERGIES: morphine, Ultram The patient's Home Medications are listed below: THE FOLLOWING MEDICATIONS NEED TO BE RECONCILED: Motrin 800mg BID last dose 2200 vicodin 0600 (last one, is out) The source(s) of the original Home Medication information: Not obtained. The following Medications were given to the patient in the Emergency Department: Hydrocodone-APAP [PO] PO 2 tab, administered: 02/17/2017 4:45:00 PM The following Medications were prescribed to the patient: Hydrocodone/APAP 5mg / 325mg: take 1 orally every 6 hours as needed for pain. Dispense twelve (12). No refill. -- Julisa Payton, P.ARicki-Aimee Ibuprofen 800 mg tablets: take 1 tablet orally every 8 hours for 5 days, as needed for pain. Dispense fifteen (15). No refill. -- Julisa Payton, P.A.-C
--- NOTE | 2017-02-17 17:59 | ED MAR SUMMARY ---
..... Medication Administration Record [facility] [address] [place] [address] Patient: REECE BUCKNER Visit ID: [id number] 31y, F Weight: 63.5 kg Height/Length: 65 in BMI: 23.3 ALLERGIES: morphine, Ultram Given 16:45 02/17/2017 Baldemar, Angela RFelix. Medication Administered: HYDROCODONE-APAP [PO] (HYDROCODONE-ACETAMINOPHEN), Dose: 2 tab 5/325 mg Tablets PO. Medication Ordered: Hydrocodone-APAP PO 10/650 mg (NOW, HIGH ALERT MEDICATION).
--- NOTE | 2017-02-17 17:59 | ED MED RECONCILIATION SUMMARY ---
Patient: REECE BUCKNER Medication Reconciliation Report [facility] VisitID: [id number] [address] [place] [address] 31y, F Registration Date/Time: 02/17/2017 Weight: 63.5 kg Height/Length: 65 in. BMI: 23.3 ALLERGIES: morphine, Ultram The patient's Home Medications are listed below: THE FOLLOWING MEDICATIONS NEED TO BE RECONCILED: Motrin 800mg BID last dose 2200 vicodin 0600 (last one, is out) The source(s) of the original Home Medication information: Not obtained. The following Medications were given to the patient in the Emergency Department: Hydrocodone-APAP [PO] PO 2 tab, administered: 02/17/2017 4:45:00 PM The following Medications were prescribed to the patient: Hydrocodone/APAP 5mg / 325mg: take 1 orally every 6 hours as needed for pain. Dispense twelve (12). No refill. -- Julisa Payton, P.ARicki-Aimee Ibuprofen 800 mg tablets: take 1 tablet orally every 8 hours for 5 days, as needed for pain. Dispense fifteen (15). No refill. -- Julisa Payton, P.A.-C
--- NOTE | 2017-02-17 17:59 | ED DISCHARGE INSTRUCTIONS ---
Patient: REECE BUCKNER General Instructions [facility] VisitID: [id number] [place] [address] 31y, F Registration Date/Time: 02/17/2017 Chest wall pain INSTRUCTIONS Avoid stimulants (such as cigarettes, coffee, cold medicines, sinus medicines, street drugs). (Address: [place] [address] ). Prescription Medications: Hydrocodone/APAP 5mg / 325mg: take 1 orally every 6 hours as needed for pain. Dispense twelve (12). No refill. Ibuprofen 800 mg tablets: take 1 tablet orally every 8 hours for 5 days, as needed for pain. Dispense fifteen (15). No refill. Follow-up: Follow up with your doctor in three days. ADDITIONAL INFORMATION Chest Contusion Acontusion is a bruise to the skin, muscle or ribs. It may cause pain, tenderness, swelling and a purplish discoloration. Contusions take a few days to a few weeks to heal. Home Care: Rest. You should not be doing any heavy lifting or strenuous exertion, or any activity that causes pain. You may use acetaminophen (Tylenol) or ibuprofen (Motrin, Advil) to control pain, unless another pain medicine was prescribed. [ NOTE: If you have chronic liver or kidney disease or ever had a stomach ulcer or GI bleeding, talk with your doctor before using these medicines.] Follow Up with your doctor during the next week or as directed. Get Prompt Medical Attention if any of the following occur: Shortness of breath Increasing chest pain with breathing Dizziness, weakness or fainting New or worsening of abdominal pain Fever of 100.4F (38C) or higher, or as directed by your healthcare provider Rib Contusion A rib contusion is a bruise to one or more rib bones. It may cause pain, tenderness, swelling and a purplish discoloration. There may be a sharp pain with each breath. A rib contusion takes a few days, to a few weeks to heal. A small crack (fracture) in the rib may cause the same symptoms as a rib contusion. The small crack may not be seen on a chest x-ray. However, the treatment of these two conditions are the same. Home Care: Rest. You should not be doing any heavy lifting or strenuous exertion, or any activity that causes pain. Apply an ice pack (ice cubes in a plastic bag, wrapped in a towel) over the injured area for 20 minutes every 1-2 hours the first day. Continue with ice packs 3-4 times a day for the next two days, then as needed for the relief of pain and swelling. You may use acetaminophen (Tylenol) or ibuprofen (Motrin, Advil) to control pain, unless another pain medicine was prescribed. [NOTE: If you have chronic liver or kidney disease or ever had a stomach ulcer or GI bleeding, talk with your doctor before using these medicines.] Follow Up with your doctor during the next week or as directed. Get Prompt Medical Attention if any of the following occur: Shortness of breath Increasing chest pain with breathing or congested cough Dizziness, weakness or fainting New or worsening of abdominal pain Fever of 100.4F (38C) or higher, or as directed by your healthcare provider Hydrocodone Bitartrate, Acetaminophen Oral tablet What is this medicine? ACETAMINOPHEN; HYDROCODONE (a set a LIZZY chloe fen; eliel droe KOE done) is a pain reliever. It is used to treat mild to moderate pain. How should I use this medicine? Take this medicine by mouth. Swallow it with a full glass of water. Follow the directions on the prescription label. If the medicine upsets your stomach, take the medicine with food or milk. Do not take more than you are told to take. Talk to your automatic developer regarding the use of this medicine in children. This medicine is not approved for use in children. What side effects may I notice from receiving this medicine? Side effects that you should report to your doctor or health critical care nurse specialist as soon as possible: allergic reactions like skin rash, itching or hives, swelling of the face, lips, or tongue breathing problems confusion feeling faint or lightheaded, falls stomach pain yellowing of the eyes or skin Side effects that usually do not require medical attention (report to your doctor or health critical care nurse specialist if they continue or are bothersome): nausea, vomiting stomach upset What may interact with this medicine? alcohol antihistamines isoniazid medicines for depression, anxiety, or psychotic disturbances medicines for sleep muscle relaxants naltrexone narcotic medicines (opiates) for pain phenobarbital ritonavir tramadol What if I miss a dose? If you miss a dose, take it as soon as you can. If it is almost time for your next dose, take only that dose. Do not take double or extra doses. Where should I keep my medicine? Keep out of the reach of children. This medicine can be abused. Keep your medicine in a safe place to protect it from theft. Do not share this medicine with anyone. Selling or giving away this medicine is dangerous and against the law. Store at room temperature between 15 and 30 degrees C (59 and 86 degrees F). Protect from light. Keep container tightly closed. Throw away any unused medicine after the expiration date. Discard unused medicine and used packaging carefully. Pets and children can be harmed if they find used or lost packages. What should I tell my health care provider before I take this medicine? They need to know if you have any of these conditions: brain tumor Crohn's disease, inflammatory bowel disease, or ulcerative colitis drink more than 3 alcohol-containing drinks per day drug abuse or addiction head injury heart or circulation problems kidney disease or problems going to the bathroom liver disease lung disease, asthma, or breathing problems an unusual or allergic reaction to acetaminophen, hydrocodone, other opioid analgesics, other medicines, foods, dyes, or preservatives or trying to get breast-feeding What should I watch for while using this medicine? Tell your doctor or health critical care nurse specialist if your pain does not go away, if it gets worse, or if you have new or a different type of pain. You may develop tolerance to the medicine. Tolerance means that you will need a higher dose of the medicine for pain relief. Tolerance is normal and is expected if you take the medicine for a long time. Do not suddenly stop taking your medicine because you may develop a severe reaction. Your body becomes used to the medicine. This does NOT mean you are addicted. Addiction is a behavior related to getting and using a drug for a non-medical reason. If you have pain, you have a medical reason to take pain medicine. Your doctor will tell you how much medicine to take. If your doctor wants you to stop the medicine, the dose will be slowly lowered over time to avoid any side effects. You may get drowsy or dizzy when you first start taking the medicine or change doses. Do not drive, use machinery, or do anything that may be dangerous until you know how the medicine affects you. Stand or sit up slowly. There are different types of narcotic medicines (opiates) for pain. If you take more than one type at the same time, you may have more side effects. Give your health care provider a list of all medicines you use. Your doctor will tell you how much medicine to take. Do not take more medicine than directed. Call emergency for help if you have problems breathing. The medicine will cause constipation. Try to have a bowel movement at least every 2 to 3 days. If you do not have a bowel movement for 3 days, call your doctor or health critical care nurse specialist. Too much acetaminophen can be very dangerous. Do not take Tylenol (acetaminophen) or medicines that contain acetaminophen with this medicine. Many non-prescription medicines contain acetaminophen. Always read the labels carefully. You have been given the following additional information: Chest Wall Contusion Rib Contusion Hydrocodone Bitartrate, Acetaminophen Oral tablet (Electronically signed by Julisa Payton P.A.-C 02/17/2017 17:48)
== END 2017-02-17 17:50 | disposition home or self-care (01) ==
LOC: ED SRH 15:12
DX: R07.89 Other chest pain (principal); J45.909 Unspecified asthma, uncomplicated; F17.210 Nicotine dependence, cigarettes, uncomplicated
CPT/HCPCS: 90004; 90100; 90616; 92235; 95059